=== PATIENT | male | born 1985 | race Caucasian/White ===

== ENCOUNTER 2017-03-08 21:39 | Emergency (ER) | payer SELFPAY ==
[~2017-03-08 21:39] MED LIST: BACTRIM DS TABL1 TAB PO; HYDROGEN PEROXIDE INH; MULTIVITAMIN1 TAB PO; NO HOME MEDS; PHENERGAN W/CO120 ML PO; TESSALON PERLE100 MG PO
[2017-03-08] MEDS ORDERED: ADDERALL 30 MG30 M2 PO (22:02)
[2017-03-08] MEDS ORDERED: XANAX1 M1 PO (22:03)
[2017-03-08] MEDS ORDERED: EFFEXOR XR75 M1 PO (22:03)
[2017-03-08 22:44] LABS: BASO % 0.3 % (0-2); EOS % 3.4 % (0-7); EOSINOPHIL ABSOLUTE COUNT 0.2 tho/cmm (0.0-0.7); HCT-HEMATOCRIT 43.1 % (36.0-53.5); HGB-HEMOGLOBIN 15.7 gm/dl (13.5-17.0); IMMATURE GRANULOCYTES ABSOLUTE 0.01 tho/cmm (0-0.03); IMMATURE GRANULOCYTES PERCENT 0.2 % (0-0.3); LYMPH % 35.3 % (20-45); LYMPH ABSOLUTE COUNT 2.2 tho/cmm (0.8-4.5); MCHC MEAN CORPUSCULAR HGB CONC 36.4 % (32.0-36.0); MCV (MEAN CELL VOLUME) 87.8 fl (82.0-96.0); MEAN PLATELET VOLUME 8.9 cmc (9.4-12.4); MONO % 9.4 % (0-12); MONOCYTE ABSOLUTE COUNT 0.6 tho/cmm (0.0-1.2); NEUTROPHIL ABSOLUTE COUNT 3.1 tho/cmm (1.6-8.0); NEUTROPHIL-AUTOMATED 3.1 tho/cmm (1.6-8.0); NEUTROPHILS % 51.4 % (40-80); PLATELET COUNT 222 tho/cmm (150-450); RED BLOOD COUNT 4.91 mil/cmm (4.40-5.70); RED CELL DISTRIBUTION WIDTH 12.8 % (12.4-16.4); WHITE BLOOD COUNT 6.1 tho/cmm (4.0-10.0)
[2017-03-08 23:00] LABS: ALB/GLOB RATIO 1.1 (0.8-2.0); ALBUMIN 3.9 g/dl (3.5-5.0); ALKALINE PHOSPHATASE 78 U/L (33-138); ALT/SGPT 25 U/L (12-78); ANION GAP 13 mmol/L (0-20); AST/SGOT 20 U/L (10-40); BILIRUBIN,TOTAL 0.5 mg/dl (0.0-1.5); BLOOD UREA NITROGEN 14 mg/dl (6-24); CALCIUM 8.7 mg/dl (8.5-10.5); CARBON DIOXIDE-VENOUS 28 mmol/L (22-32); CHLORIDE 104 mmol/l (96-110); CREATININE 0.92 mg/dl (0.60-1.30); GLUCOSE 84 mg/dL (70-110); POTASSIUM 3.8 mmol/L (3.7-5.1); SODIUM 141 mmol/L (135-145); eGFR VALUE FOR BLACK >90 mL/Min
[2017-03-08] MEDS ORDERED: BACTRIM DS TAB1 EAC2 PO (23:19)
[2017-06-09] MEDS ORDERED: SULFAMYLON60 GM TOP (16:15)
[2017-06-09] MEDS ORDERED: OXYCODONE HCL20 M3 PO (16:16)
[2017-06-09] MEDS ORDERED: EFFEXOR XR75 M1 PO (16:16)
[2017-06-09] MEDS ORDERED: AUGMENTIN 875-1 EAC2 PO (16:17)
[2017-06-09] MEDS ORDERED: MOTRIN IB200 M1 PO (16:20)
[2017-06-09] MEDS ORDERED: ROXICODONE5 M2 PO (16:39)
[2017-06-09] MEDS ORDERED: TYLENOL325 M2 PO (16:40)
[2017-07-18] MEDS ORDERED: KEFLEX500 M4 PO (09:36)
[2017-07-18] MEDS ORDERED: SULFAMYLON50 GM TOP (09:37)
[2017-07-18] MEDS ORDERED: EFFEXOR XR75 M1 PO (16:51)
== END 2017-03-08 23:49 ==
LOC: EDMED 21:39
PROVIDERS: Emergency Medicine
DX: L03.116 Cellulitis of left lower limb (principal); J45.909 Unspecified asthma, uncomplicated; Z88.0 Allergy status to penicillin; F17.200 Nicotine dependence, unspecified, uncomplicated; Z79.899 Other long term (current) drug therapy
CPT/HCPCS: J0690; J7030